=== PATIENT | female | born 1995 | race Caucasian/White ===

== ENCOUNTER 2020-03-08 15:05 | Emergency (ER) | payer OTHER ==
[~2020-03-08] VITALS: Ht 162.6 cm; Wt 116.1 kg
== END 2020-03-08 18:30 | disposition home or self-care (01) ==
LOC: ED 15:05
DX: O20.0 Threatened abortion (principal); Z3A.13 13 weeks gestation of pregnancy; Z88.6 Allergy status to analgesic agent
CPT/HCPCS: 76801; 80048; 81001; 84702; 85025; 86900; 86901; 99284-25